=== PATIENT | male | born 1985 | race Caucasian/White ===

== ENCOUNTER 2024-09-15 11:53 | Emergency (ER) | payer OTHER ==
[2024-09-15] MEDS ORDERED: CEFTRIAXONE 1000 MG/VIAL ONE (12:32)
[2024-09-15] MEDS ORDERED: LIDOCAINE 1% MPF 2 ML AMPULE ONE (12:32)
[2024-09-15] MEDS ORDERED: HYDROCODONE/APAP 7.5/325 MG TAB ONE (12:33)
[2024-09-15] MEDS ORDERED: KETOROLAC 30 MG/ML INJ ONE (12:33)
--- NOTE | 2024-09-15 13:18 | RAD REPORT ---
EXAM: XR Knee Left 3 View HISTORY: BR MAIN PAIN Bed Name: 18 COMPARISON: None TECHNIQUE: 3 views of the left knee were obtained. FINDINGS: Mild suprapatellar knee effusion is seen. There is no evidence of acute fracture or disloca tion. No significant degenerative changes are seen. Soft tissue swelling anterior to the patella is noted. IMPRESSION: Mild joint effusion and anterior soft tissue swelling. No evidence of acute osseous abnormality.
--- NOTE | 2024-09-15 13:29 | ER ---
Nurse's Notes [facility] Name: Harvey Luis Age: 39 yrs Sex: Male : 1985 Arrival Date: 09/15/2024 Time: 11:53 Bed 18 Private MD: Diagnosis: Prepatellar bursitis, right knee Presentation: 09/15 12:03 Chief complaint: Patient states: L knee pain for 10 days. Severe pain and feels hot to ll1 site for 3 days. Coronavirus screen: Client denies travel out of the [place] in the last 14 days. At this time, the client does not indicate any symptoms associated with coronavirus-19. Ebola Screen: Patient denies travel to an Ebola-affected area in the 21 days before illness onset. Initial Sepsis Screen: Does the patient meet any 2 criteria? No. Patient's initial sepsis screen is negative. Does the patient have a suspected source of infection? No. Patient's initial sepsis screen is negative. Risk Assessment: Do you want to hurt yourself or someone else? Patient reports no desire to harm self or others. Onset of symptoms was September 05, 2024. 12:03 Method Of Arrival: Wheelchair ll1 12:03 Acuity: CHILANGO 3 ll1 Triage Assessment: 12:15 General: Appears uncomfortable, Behavior is calm, cooperative, appropriate for age. ll1 Pain: Complains of pain in L knee. Derm: scab L knee. Musculoskeletal: Reports pain in L knee. Historical: - Allergies: 12:02 No Known Allergies; ll1 - Home Meds: 12:02 gabapentin oral [Active]; ll1 - PMHx: 12:02 neuropathy; ll1 - PSHx: 12:02 facial reconstruction; Tonsillectomy; ll1 - Immunization history:: Adult Immunizations up to date. - Infectious Disease History:: Denies. - Social history:: Smoking status: Patient reports the use of cigarette tobacco products, smokes one-half pack cigarettes per day. Screenin:27 [facility] ED Fall Risk Assessment (Adult) History of falling in the last 3 months, iw including since admission No falls in past 3 months (0 pts) Confusion or Disorientation No (0 pts) Intoxicated or Sedated No (0 pts) Impaired Gait No (0 pts) Mobility Assist Device Used No (0 pt) Altered Elimination No (0 pt) Score/Fall Risk Level 0 - 2 = Low Risk Oriented to surroundings, Maintained a safe environment, Educated pt \T\ family on fall prevention, incl call for assistance when getting out of bed, Hourly rounding (assess needs \T\ fall precautionary measures) done. Abuse screen: Denies threats or abuse. Denies injuries from another. Nutritional screening: No deficits noted. Tuberculosis screening: No symptoms or risk factors identified. Assessment: 12:25 General: Appears uncomfortable, Behavior is calm, cooperative. Pain: Complains of pain iw in medial aspect of left knee Pain radiates to left leg Pain currently is 7 out of 10 on a pain scale. Quality of pain is described as aching. Neuro: Level of Consciousness is awake, alert, obeys commands, Oriented to person, place, time, situation. Cardiovascular: Capillary refill < 3 seconds Patient's skin is warm and dry. Respiratory: Airway is patent Respiratory effort is even, unlabored, Respiratory pattern is regular, symmetrical. GI: No signs and/or symptoms were reported involving the gastrointestinal system. : No signs and/or symptoms were reported regarding the genitourinary system. Derm: Skin is pink, warm \T\ dry. Wound noted medial aspect of left knee Wound is clean and dry. 13:07 Reassessment: Patient and/or family updated on plan of care and expected duration. Pain ha1 level reassessed. Patient is alert, oriented x 3, equal unlabored respirations, skin warm/dry/pink. Vital Signs: 12:03 BP 140 / 88; Pulse 75; Resp 17; Temp 97; Pulse Ox 100% ; Weight 92.99 kg; Height 6 ft. ll1 0 in. ; Pain 10/10; 13:08 BP 120 / 77; Pulse 76; Resp 18 S; Pulse Ox 100% on R/A; ha1 12:03 Body Mass Index 27.80 (92.99 kg, 182.88 cm) ll1 12:03 Pain Scale: Adult ll1 ED Course: 11:55 Patient arrived in ED. mr 12:00 Patient has correct armband on for positive identification. Bed in low position. Call ha1 light in reach. Side rails up X 1. Adult w/ patient. 12:05 Triage completed. ll1 12:09 Page, Josue, PA is PHCP. cp 12:09 Lord, Setul, MD is Attending Physician. cp 12:15 Arm band placed on Patient placed in an exam room, on a stretcher. ll1 12:25 Gill Saldana, RN is Primary Nurse. iw 12:57 XRAY Knee LEFT 3 view In Process Unspecified. EDMS 13:28 Sancho Schreiber MD is Referral Physician. cp 13:28 Referral Physician role handed off by Sancho Schreiber MD cp 14:05 No provider procedures requiring assistance completed. Patient did not have IV access ha1 during this emergency room visit. 14:08 Provided Education on: FOLLOW UPS . ha1 Administered Medications: 12:43 Drug: Ketorolac IM 30 mg IM once Route: IM; Site: right ventrogluteal; ha1 13:00 Follow up: Response: No adverse reaction; Marked relief of symptoms; Pain is decreased ha1 12:43 Drug: Hydrocodone-Acetaminophen PO (7.5 mg-325 mg) 1 tabs PO once; RASS on ADMIN: ha1 Combtv4, Very Agttd3, Agttd2, Rstlss1, AlertClm0, Drwsy-1, Lt Sdtn-2, Mod Sdtn-3, Dp Sdtn-4, UnArsble-5 Route: PO; 14:04 Follow up: Response: No adverse reaction; Marked relief of symptoms ha1 12:43 Drug: Rocephin (cefTRIAXone) IM 1 grams IM once Route: IM; Site: right ventrogluteal; ha1 13:30 Follow up: Response: No adverse reaction; Marked relief of symptoms ha1 13:50 Drug: Trimethoprim-Sulfamethoxazole PO (160 mg-800 mg (DS) 2 tablet PO once Route: PO; ha1 14:03 Follow up: Response: No adverse reaction ha1 Medication: 13:09 VIS not applicable for this client. ha1 Outcome: 13:29 Discharge ordered by . cp 14:06 Discharged to home ambulatory, with crutches, with family, ha1 14:06 Condition: stable 14:06 Discharge instructions given to patient, family, Instructed on discharge instructions, follow up and referral plans. medication usage, Demonstrated understanding of instructions, follow-up care, medications, Prescriptions given X 4, 14:08 Patient left the ED. ha1 Signatures: Dispatcher [employer] EDNJ Darlin Peterson, Reg Reg mr Gill Saldana RN RN iw Josue Hess PA PA cp Lewis, Lynsay, RN RN ll1 Jazmin Montgomery RN RN 1 Corrections: (The following items were deleted from the chart) 12: PMHx: None; ll1 ll1 12: PMHx: gabapentin; ll1 ll1
--- NOTE | 2024-09-15 13:29 | EDPHYS ---
Physician Documentation [facility] Name: Harvey Luis Age: 39 yrs Sex: Male : 1985 Arrival Date: 09/15/2024 Time: 11:53 Bed 18 Private MD: ED Physician Joes Alberto Lord HPI: 09/15 12:30 This 39 yrs old Male presents to ER via Wheelchair with complaints of Knee swelling. cp 12:30 The patient presents with pain, that is acute. cp 12:30 The complaints affect the left knee. cp 12:30 Context: resulted from an unknown cause, the patient can fully bear weight, the patient cp is able to ambulate, with mild difficulty. 12:30 Onset: The symptoms/episode began/occurred 10 day(s) ago, and became worse 3 day(s) ago.cp 12:30 Associated signs and symptoms: Pertinent negatives calf tenderness, fever, chills. cp Historical: - Allergies: 12:02 No Known Allergies; ll1 - Home Meds: 12:02 gabapentin oral [Active]; ll1 - PMHx: 12:02 neuropathy; ll1 - PSHx: 12:02 facial reconstruction; Tonsillectomy; ll1 - Immunization history:: Adult Immunizations up to date. - Infectious Disease History:: Denies. - Social history:: Smoking status: Patient reports the use of cigarette tobacco products, smokes one-half pack cigarettes per day. ROS: 12:35 MS/extremity: Positive for pain, swelling, tenderness, of the left knee, cp 12:35 Eyes: Negative for injury, pain, redness, and discharge, cp 12:35 Constitutional: Negative for body aches, chills, fever, poor PO intake, 12:35 Respiratory: Negative for cough, shortness of breath, wheezing, 12:35 Abdomen/GI: Negative for abdominal pain, nausea, vomiting, and diarrhea, 12:35 Neuro: Negative for altered mental status, headache, weakness, 12:35 All other systems are negative, Exam: 12:40 Constitutional: The patient appears in no acute distress, alert, awake, non-toxic, well cp developed, well nourished, 12:40 Head/Face: Normocephalic, atraumatic. cp 12:40 Chest/axilla: Inspection: normal, 12:40 Cardiovascular: Rate: normal, Rhythm: regular, 12:40 Respiratory: the patient does not display signs of respiratory distress, Respirations: normal, no use of accessory muscles, no retractions, 12:40 Abdomen/GI: Inspection: abdomen appears normal, 12:40 Back: pain, is absent, ROM is normal, 12:40 Musculoskeletal/extremity: Extremities: noted in the left knee: pain, tenderness, mild erythema noted anterior knee, ROM: limited passive range of motion due to pain, in the left knee, 12:40 Neuro: Orientation: to person, place \T\ time. Mentation: is normal, Vital Signs: 12:03 BP 140 / 88; Pulse 75; Resp 17; Temp 97; Pulse Ox 100% ; Weight 92.99 kg; Height 6 ft. ll1 0 in. ; Pain 10/10; 13:08 BP 120 / 77; Pulse 76; Resp 18 S; Pulse Ox 100% on R/A; ha1 12:03 Body Mass Index 27.80 (92.99 kg, 182.88 cm) ll1 12:03 Pain Scale: Adult ll1 MDM: 12:09 Medical Screening Exam initiated cp 12:30 Differential diagnosis: cellulitis, septic joint, joint effusion, abscess. 13:28 Data reviewed: vital signs, nurses notes, radiologic studies, plain films, and as a cp result, I will discharge patient. 13:28 I considered the following discharge prescriptions or medication management in the emergency department Medications were administered in the Emergency Department. See MAR. Counseling: I had a detailed discussion with the patient and/or guardian regarding the historical points, exam findings, and any diagnostic results supporting the discharge/admit diagnosis, radiology results, to return to the emergency department if symptoms worsen or persist or if there are any questions or concerns that arise at home. Response to treatment: the patient's symptoms have mildly improved after treatment, and as a result, I will discharge patient. 09/15 12:25 Order name: XRAY Knee LEFT 3 view; Complete Time: 13:18 cp 09/15 13:21 Order name: Crutches; Complete Time: 14:03 cp 09/15 13:21 Order name: Sudeep Wrap; Complete Time: 14:03 cp Administered Medications: 12:43 Drug: Ketorolac IM 30 mg IM once Route: IM; Site: right ventrogluteal; ha1 13:00 Follow up: Response: No adverse reaction; Marked relief of symptoms; Pain is decreased ha1 12:43 Drug: Hydrocodone-Acetaminophen PO (7.5 mg-325 mg) 1 tabs PO once; RASS on ADMIN: ha1 Combtv4, Very Agttd3, Agttd2, Rstlss1, AlertClm0, Drwsy-1, Lt Sdtn-2, Mod Sdtn-3, Dp Sdtn-4, UnArsble-5 Route: PO; 14:04 Follow up: Response: No adverse reaction; Marked relief of symptoms ha1 12:43 Drug: Rocephin (cefTRIAXone) IM 1 grams IM once Route: IM; Site: right ventrogluteal; ha1 13:30 Follow up: Response: No adverse reaction; Marked relief of symptoms ha1 13:50 Drug: Trimethoprim-Sulfamethoxazole PO (160 mg-800 mg (DS) 2 tablet PO once Route: PO; ha1 14:03 Follow up: Response: No adverse reaction ha1 Disposition Summary: 09/15/24 13:29 Discharge Ordered Notes: Location: Home cp Problem: new cp Symptoms: have improved cp Condition: Stable cp Diagnosis - Prepatellar bursitis, right knee cp Followup: cp - With: Sancho Schreiber MD - When: 2 - 3 days - Reason: Worsening of condition Followup: cp - With: Private Physician - When: 2 - 3 days - Reason: Worsening of condition Discharge Instructions: - Discharge Summary Sheet cp - Prepatellar Bursitis cp Forms: - Medication Reconciliation Form cp - Antibiotic Education cp - Prescription Opioid Use cp - Patient Portal Instructions cp - Leadership Thank You Letter cp Prescriptions: - Cephalexin 500 mg Oral Capsule - take 1 capsule ORAL route every 8 hours for 10 days; 30 capsule; Refills: 0, cp Product Selection Permitted - Ultram 50 mg Oral Tablet - take 1 tablet ORAL route every 6 hours As needed; 12 tablet; Refills: 0, cp Product Selection Permitted - Diclofenac Sodium 75 mg Oral tablet, delayed release (enteric coated) - take 1 tablet ORAL route 2 times per day; 20 tablet; Refills: 0, Product cp Selection Permitted - Bactrim DS 800-160 mg Oral tablet - take 1 tablet ORAL route every 12 hours for 10 days; 20 tablet; Refills: 0, cp Product Selection Permitted Signatures: Dispatcher [employer] EDNE Josue Hess PA PA cp Lewis, Lynsay, RN RN ll1 Jazmin Montgomery RN RN ha1 Corrections: (The following items were deleted from the chart) 12: PMHx: None; ll1 ll1 12: PMHx: gabapentin; ll1 ll1
[2024-09-15] MEDS ORDERED: SMZ./TMP. 800/160 MG TABLET ONE (13:45)
[2024-09-18 15:20] VITALS: BP 120/77; TEMP 97; O2SAT 100
== END 2024-09-15 14:08 | disposition home or self-care (01) ==
LOC: ER 11:53
DX: M70.42 Prepatellar bursitis, left knee (principal); G62.9 Polyneuropathy, unspecified; F17.210 Nicotine dependence, cigarettes, uncomplicated
CPT/HCPCS: 73562; 96372; 99284; J0696